=== PATIENT | female | born 2000 | race Caucasian/White ===

== ENCOUNTER 2018-04-25 17:32 | Emergency (ER) | payer SELFPAY ==
[~2018-04-25] VITALS: Ht 154.9 cm; Wt 59.9 kg
[2018-04-25 18:02] LABS: BASOPHILS % 0.1 % (0.0-1.0); EOSINOPHILS % 0.3 % (0.0-6.0); HEMOGLOBIN 12.4 g/dL (12.0-16.0); LYMPHOCYTES # (AUTO) 1.8 (1.0-3.2); LYMPHOCYTES % 24.4 % (18.0-39.1); MEAN CORPUSCULAR HEMOGLOBIN 29.6 pg (28-32); MEAN CORPUSCULAR HGB CONC 34.4 g/dL (31-35); MEAN CORPUSCULAR VOLUME 85.9 fL (81-99); MONOCYTES # (AUTO) 0.4 (0.2-0.8); MONOCYTES % 5.8 % (4.4-11.3); NEUTROPHILS # (AUTO) 5.1 (2.1-6.9); NEUTROPHILS % 68.2 % (38.7-80.0); PLATELET COUNT 247 x10e3/uL (140-360); RED BLOOD COUNT 4.19 x10e6/uL (3.6-5.1); RED CELL DISTRIBUTION WIDTH 12.1 % (11.7-14.4)
[2018-04-25 18:17] LABS: INR 1.13; PROTHROMBIN TIME 13.6 seconds (11.9-14.5)
[2018-04-25 18:18] LABS: PARTIAL THROMBOPLASTIN TIME 29.5 seconds (23.8-35.5)
[2018-04-25 18:19] LABS: ALANINE AMINOTRANSFERASE 9 IU/L (0-55); ALBUMIN/GLOBULIN RATIO 1.5 (0.8-2.0); ALKALINE PHOSPHATASE 45 IU/L (40-150); AMYLASE 99 U/L (25-125); ANION GAP 10.5 mmol/L (8-16); BLOOD UREA NITROGEN 7 mg/dL (7-26); BUN/CREATININE RATIO 10 (6-25); CALCIUM 9.1 mg/dL (8.4-10.2); CARBON DIOXIDE 23 mmol/L (22-29); CHLORIDE 104 mmol/L (98-107); CREATININE, SERUM 0.67 mg/dL (0.57-1.11); EST GLOMERULAR FILTRATION RATE > 60 ML/MIN (60-); GLUCOSE 93 mg/dL (74-118); LIPASE 16 U/L (8-78); POTASSIUM 3.5 mmol/L (3.5-5.1); SODIUM 134 mmol/L (136-145)
--- NOTE | 2018-04-25 18:51 | Diagnostic Imaging Report ---
PROCEDURE:US ABDOMEN LIMITED COMPARISON:None. INDICATIONS:rt sided abd pain FINDINGS: LIVER: Size:12.0 cm in the right nidclavicular line, normal Appearance:Normal echogenicity, smooth contour Mass:No focal masses GALLBLADDER: Stones/Sludge:No stones or sludge. A 5 mm non-mobile non-shadowing lesion in the gallbladder may represent a small polyp. Appearance:No wall thickening, pericholecystic fluid or hydrops. Sonographic Lowery's Sign:Negative BILE DUCTS: Intrahepatic Ducts:No dilation Extrahepatic Ducts:Common bile duct measures 0.2 cm, no dilatation. PANCREAS: Visualized portions of the neck and proximal body are normal. RIGHT KIDNEY: Size:10.3 cm in length Echogenicity:Normal Collecting System:No hydronephrosis Stone:None Cyst/Mass:None VESSELS: Aorta:Visualized portions are normal. Inferior Vena Cava:Visualized portions are normal. Main Portal Vein:0.9 cm, normal size with hepatopedal flow. FREE FLUID: No ascites or pleural effusions. CONCLUSION: 5 mm probable polyp in the gallbladder. Recommend follow up ultrasound in one year to ensure stability. Otherwise no specific findings to explain right sided abdominal pain. No cholelithiasis or biliary ductal dilatation. Dictated by: Alex Young M.D. on 04/25/2018 at 18:56 Electronically approved by: Alex Young M.D. on 04/25/2018 at 18:56
[2018-04-25 19:33] LABS: CLARITY,URINE SL CLOUDY (CLEAR); COLOR,URINE YELLOW (YELLOW); LEUKOCYTE ESTERASE ,URINE 1+ (NEGATIVE); NITRITE,URINE NEGATIVE (NEGATIVE)
[2018-04-25 19:34] LABS: BILIRUBIN,URINE NEGATIVE (NEGATIVE); KETONES,URINE NEGATIVE (NEGATIVE); PROTEIN,URINE DIPSTICK NEGATIVE (NEGATIVE); URINE UROBILINOGEN 0.2 mg/dL (0.2 - 1)
[2018-04-25 19:58] LABS: EPITHELIAL CELLS,URINE MANY /LPF; TRANSITIONAL EPI CELLS,URINE MODERATE
[2018-04-25 19:59] LABS: BACTERIA,URINE MODERATE /HPF
--- NOTE | 2018-04-25 22:45 | Diagnostic Imaging Report ---
EXAM: Obstetric Pelvic Ultrasound INDICATION: Abdominal pain, COMPARISON: None TECHNIQUE: Transabdominal and transvaginal evaluation of the pelvis was performed in the transverse and longitudinal planes. CLINICAL HISTORY: 17 year old A0; last menstrual period: 03/22/2018 FINDINGS: Uterus: Orientation: Normal Size: 7 x 5.1 x 6.2 cm, enlarged Mass: None Cervix: Normal Gestational Sac: Location: Intrauterine Average sac diameter: 3.66 cm Estimated sonographic GA: 9 weeks and 0 days Appearance: Normal in contour Subchorionic hemorrhage: None Yolk sac: Normal Embryo/Fetus: [place] rump length: 2.37 cm Estimated sonographic GA: 9 weeks and 0 days Cardiac activity: 165 bpm Right ovary Size: 3.3 x 2.2 x 2.7 cm Mass/Cyst: None Left ovary Size: 3.6 x 1.7 x 1.6 cm Mass/Cyst: Dominant follicle/corpus luteum measuring 2 cm in largest dimension Cul-de-sac: No free fluid IMPRESSION: Single, viable intrauterine . Signed by: Dr. Cong Diego M.D. on 04/25/2018 9:59 PM
== END 2018-04-25 23:23 | disposition home or self-care (01) ==
LOC: ER 17:32
DX: R10.11 Right upper quadrant pain (principal); R11.2 Nausea with vomiting, unspecified; N30.91 Cystitis, unspecified with hematuria; Z33.1 Pregnant state, incidental
CPT/HCPCS: 36415; 76705; 76817; 80053; 81001; 82150; 83690; 84702; 85025; 85610; 85730; 99284